=== PATIENT | male | born 1960 | race African-American/Black ===

== ENCOUNTER 2025-08-05 22:14 | Observation (INO) ==
--- NOTE | 2025-08-05 22:29 | DR.ABDMALE ---
HPI Time seen Time Seen by Provider: 08/05/25 22:15 Complaint Chief Complaint Doctors Comments: 65-year-old male presents to ED from home POV complaining of Abdominal pain with nausea and vomiting. Patient apparently was at [facility] from this morning until 6 PM where he was discharged home with diverticulosis and gastroenteritis. Since patient has been home he has had intractable vomiting so he came here Staff is attempting to obtain labs from his earlier hospitalization History of reducible inguinal hernia Patient had inguinal hernia repair 07/05/2025Here at [facility] by Dr. Apple [facility] Past Surgical History: Yes Surgical History: Appendectomy Family History Family Medical History: Cancer Social History Do you use any recreational Drugs:: Yes (marijuana daily) ROS Review of Systems Constitutional: No Symptoms Reported Eyes: No Symptoms Reported ENTM: No Symptoms Reported Respiratoy: No Symptoms Reported Cardiovascular: No Symptoms Reported Gastrointestinal/Abdominal: See HPI, Abdominal Pain, Nausea and Vomiting Genitourinary: No Symptoms Reported Neurological: No Symptoms Reported Musculoskeletal: No Symptoms Reported Integumentary: No Symptoms Reported Hematologic/Lymphatic: No Symptoms Reported Endocrine: No Symptoms Reported Psychiatric: No Symptoms Reported All Other Systems: Reviewed and Negative PE Vital Signs Vital Signs: Temp Pulse Resp BP Pulse Ox O2 Del Method 08/05/25 22:57 173/84 08/05/25 22:57 59 L 100 08/05/25 22:53 18 08/05/25 22:45 57 L 100 08/05/25 22:34 64 100 08/05/25 22:34 188/90 08/05/25 22:32 97.6 F 59 L 20 187/95 93 L Room Air 08/05/25 22:30 62 100 08/05/25 22:19 59 L 97 08/05/25 22:16 187/95 General Limitations: No Limitations General Appearance: Alert and In No Apparent Distress Head Head Exam: Normal Inspection Eyes Eye exam: Normal Appearance ENT ENT Exam: Normal Exam Neck Neck Exam: Normal Inspection Chest Chest Inspection: Normal Inspection Respiratory Respiratory Exam: Normal Lung Sounds Bilat Cardiovascular Cardiovascular Exam: Regular Rate and Normal Rhythm Abdominal Exam Abdominal Exam: Normal Inspection, Tenderness and Guarding (Patient states pain all over no true rebound but does guard); negative Distention, Rebound or Rigidity Rectal Rectal Exam: Deferred Back Back Exam: Normal Inspection Extremeties Extremities Exam: Normal Inspection Exam: Male: Deferred Neurologic Neurological Exam: Alert and Oriented X3 Psychiatric Psychiatric Exam: Normal Affect and Normal Mood Skin Skin Exam: Warm, Dry, Intact and Normal Color COURSE Treatment Treatment: Discussed with patient intractable vomiting discussed with Dr. Rosado Will admit for observation keep patient n.p.o.Do not repeat CT scan ROR Labs Reviewed 08/05/25 22:50 08/05/25 22:50 Opioid Opioid Risk Tool Total: 0 Total Score Risk Category: Low Risk Copyright: Chapin LANGE predicting aberrant behaviors Discharge Plan Diagnosis Discharge Problem: Abdominal pain, Intractable cyclical vomiting Discharge Plan Patient Disposition: ADMITTED INPATIENT Condition: Stable Prescriptions: No Action ondansetron 4 mg tablet,disintegrating 4 mg PO Health Concerns: Post Hospitalization: new medications and changes needed to prevent readmission or further decline. Pt educated and given instructions on all concerns. Plan of Treatment: Continue with present treatment and follow up plan. Pt is to keep follow up appointment as instructed and take medications as ordered. Orders to Discharge Patient Discharge Orders: Transfer (Routine); Ordered 08/05/25 Ordered By: Cesar Buckley Follow ups/Referrals Follow ups/Referrals: TENISHA BARRIOS [Primary Care Provider, MEDICAL] - 3 days Instructions Print Language: TRINIDADIAN
[2025-08-05] MEDS: NS 1,000 ML IV 1,000 ML IV ONE (22:50)
[2025-08-05] MEDS: ZOFRAN INJ 4 MG VIAL IVP ONE (22:50)
[2025-08-05] MEDS: MORPHINE SULFATE INJ 4 MG IVP ONE (22:53)
[2025-08-05 23:00] LABS: MEAN PLATELET VOLUME 6.6 fL (7.4-11.0); RED CELL DISTRIBUTION WIDTH 14.1 % (11.6-16.5)
[2025-08-05] MEDS: ZOSYN VIAL 3.375 GRAMS 3.375 G in NS 100 ML IV 100 ML IV SCH (23:00)
[2025-08-05 23:11] LABS: COR NA(FOR HYPERGLY) 140 mmol/L (136-145); CREATININE 1.02 mg/dL (0.70-1.30); eGFR NON BLACK RACES > 60 (>60)
[2025-08-06] MEDS ORDERED: CONSULT PHARMACY - POTASSIUM & MAGNESIUM XX SCH (00:16)
[2025-08-06] MEDS ORDERED: NS 250 ML IV 25 ML IV PRN (00:16)
[2025-08-06] MEDS ORDERED: ZOSYN VIAL 3.375 GRAMS 3.375 G in NS 100 ML IV 100 ML IV SCH (00:16)
[2025-08-06] MEDS ORDERED: TYLENOL 325 MG TAB PO PRN (00:16)
[2025-08-06] MEDS: NORCO 5/325 MG TAB PO PRN (00:27)
[2025-08-06] MEDS: ZOFRAN ODT PO SCH (00:28)
[2025-08-06 00:34] VITALS: BMI 20.7
[2025-08-06] MEDS: NS 250 ML IV 25 ML IV PRN (00:50)
[2025-08-06] MEDS: NS 1,000 ML IV 1,000 ML IV SCH (00:50)
[2025-08-06] MEDS: K-RIDER 10 MEQ/100 ML WATER 10 MEQ/100 ML BAG IV SCH (00:51)
[2025-08-06] MEDS: DILAUDID INJ IVP PRN (02:53)
[2025-08-06 04:57] LABS: MEAN PLATELET VOLUME 6.7 fL (7.4-11.0); RED CELL DISTRIBUTION WIDTH 14.1 % (11.6-16.5)
[2025-08-06 05:15] LABS: CREATININE 1.13 mg/dL (0.70-1.30); eGFR NON BLACK RACES > 60 (>60)
[2025-08-06 05:17] LABS: BAND NEUTROPHILS % 2 % (0-10)
[2025-08-06 05:18] LABS: PLATELET MORPHOLOGY COMMENT NORMAL (NORMAL)
--- NOTE | 2025-08-06 06:02 | RAD ---
EXAM: KUB HISTORY: ABDOMINAL PAIN ; No medical hx Sx: Appy, Inguinal hernia repair COMPARISON: None FINDINGS: Evaluation of the abdomen demonstrates a moderate colonic fecal burden. Mildly gas-filled small bowel loops. No evidence of pneumoperitoneum. No pathologic soft tissue calcification. No acute osseous abnormality. Residual contrast in the bladder lumen. IMPRESSION: Mildly prominent gas-filled small bowel loops which may be due to ileus or developing obstruction. Continued follow-up recommended. THIS IS AN ELECTRONICALLY VERIFIED FINAL REPORT 08/06/2025 5:59 AM - Electronically signed by Cesar Oakes MD
[2025-08-06] MEDS: COLACE CAP 100 MG PO SCH (08:27)
[2025-08-06 11:59] VITALS: BP 108/61; PULSE 60; RESP 19; TEMP 97.5; O2SAT 99
--- NOTE | 2025-08-07 10:31 | RAD ---
EXAM: KUB HISTORY: PAIN; COMPARISON: 07/27/2025 FINDINGS: Evaluation of the abdomen demonstrates a nonspecific but nonobstructive bowel gas pattern with scattered air-filled loops of small bowel with prominent colonic distention. No pathological soft tissue mass or calcification can be observed. The bony structures are grossly intact. IMPRESSION: Nonspecific but nonobstructive bowel gas pattern with air throughout colon. THIS IS AN ELECTRONICALLY VERIFIED FINAL REPORT 08/07/2025 10:27 AM - Electronically signed by Lorne Lui MD
== END 2025-08-06 15:00 | disposition home or self-care (01) ==
LOC: MED/SURG 22:14 → ER 22:14 → MED/SURG 08-06 00:13
PROVIDERS: ADMIT Surgery; ATTEND Surgery
DX: R10.84 Generalized abdominal pain; R73.09 Other abnormal glucose; D72.828 Other elevated white blood cell count; K52.89 Other specified noninfective gastroenteritis and colitis; E86.0 Dehydration; Z98.890 Other specified postprocedural states; F12.90 Cannabis use, unspecified, uncomplicated; R11.2 Nausea with vomiting, unspecified; R74.8 Abnormal levels of other serum enzymes